=== PATIENT | male | born 1955 | race Caucasian/White ===

== ENCOUNTER 2023-05-21 06:57 | Day surgery (SDC) | payer MEDICARE, OTHER, SELFPAY | END 2023-05-21 09:43 | disposition home or self-care (01) | LOC: CATH 06:57 | PROVIDERS: ATTENDING PHYSICIAN Internal Medicine; FAMILY PHYSICIAN Family Medicine; OTHER PHYSICIAN Internal Medicine Cardiovascular Disease | DX: I48.0 Paroxysmal atrial fibrillation (principal); I08.0 Rheumatic disorders of both mitral and aortic valves; I42.1 Obstructive hypertrophic cardiomyopathy; I10 Essential (primary) hypertension; E78.00 Pure hypercholesterolemia, unspecified; G47.33 Obstructive sleep apnea (adult) (pediatric); Z79.01 Long term (current) use of anticoagulants | CPT/HCPCS: 92960; 93005 ==

== ENCOUNTER → 2023-05-30 07:46 | Outpatient (REF) | payer MEDICARE, OTHER, SELFPAY | LOC: RAD 07:46 | PROVIDERS: ATTENDING PHYSICIAN Family Medicine | DX: G45.0 Vertebro-basilar artery syndrome (principal) | CPT/HCPCS: 93880 ==

== ENCOUNTER → 2023-08-01 09:35 | Day surgery (SDC) | payer MEDICARE, OTHER, SELFPAY ==
[2023-08-01 10:47] VITALS: BMI 28.1
--- NOTE | 2023-08-01 17:24 | ITS.CL.CARDI ---
Contract Admin - Cardioversion
Cardioversion
Procedure Report:
Date of Procedure: 08/01/23
Procedure: Cardioversion
Indication: Symptomatic atrial fibrillation
Performing Physician: Elvira Zuniga DO [facility]
Technique: The patient was brought to the holding area. Signed informed consent was obtained. A time out was called and performed. The patient was anesthetized by the anesthesia service. Anticoagulation status was reviewed and appropriate. R2 pads
were placed anteriorly and posteriorly. A 200 J synchronized biphasic shock restored normal sinus rhythm without significant bradycardia. There were no complications.
Conclusion: Uncomplicated cardioversion from atrial fibrillation to sinus rhythm.
Recommendation: Routine post cardioversion care. 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
== END ==
LOC: CATH 09:35
PROVIDERS: ATTENDING PHYSICIAN Internal Medicine Cardiovascular Disease; FAMILY PHYSICIAN Family Medicine; OTHER PHYSICIAN Internal Medicine Cardiovascular Disease
DX: I48.91 Unspecified atrial fibrillation (principal); I42.1 Obstructive hypertrophic cardiomyopathy; I49.3 Ventricular premature depolarization; I10 Essential (primary) hypertension; G47.33 Obstructive sleep apnea (adult) (pediatric); E78.5 Hyperlipidemia, unspecified; Z85.820 Personal history of malignant melanoma of skin; Z79.01 Long term (current) use of anticoagulants
CPT/HCPCS: 92960; 93005

== ENCOUNTER 2023-08-06 16:49 | Emergency (ER) | payer MEDICARE, OTHER, SELFPAY ==
[2023-08-06] VITALS (16 sets, daily range): BP systolic 128–156; BP diastolic 78–104; BMI 28.0
[2023-08-06 17:18] LABS: % Eosinophils 0.4 % (0-6); % Immature Granulocytes 0.5 % (0-0.5); % Lymphocytes 17.8 % (20.5-51.1); % Neutrophils 73.3 % (42.2-75.2); Absolute Immature Granulocytes 0.1 10^3/uL (0-0.05); Absolute Lymphocytes 1.8 10^3/uL (1.2-3.4); Absolute Monocytes 0.8 10^3/uL (0.1-0.6); Absolute Neutrophils 7.4 10^3/uL (1.4-6.5); Hematocrit 46.4 % (39.0-52.0); Hemoglobin 16.9 g/dL (13.0-18.0); Mean Corp Hgb Conc. 36.4 g/dL (33.0-37.0); Mean Corpuscular Hgb 30.8 pg (27.0-31.0); Mean Corpuscular Volume 84.5 fL (80.0-94.0); Nucleated Red Blood Cells % 0 % (-); Platelet Count 225 10^3/uL (130-400); Red Blood Cell Count 5.49 10^6/uL (4.70-6.10); Red Cell Dist. Width 13.3 % (11.5-14.5); White Blood Cell Count 10.1 10^3/uL (4.8-10.8)
[2023-08-06 17:28] LABS: INR 1.91; PT 22.1 Sec (11.4-14.6)
[2023-08-06 17:36] LABS: ALT (SGPT) 41 U/L (0-50); AST (SGOT) 36 U/L (17-59); Alkaline Phosphatase 64 U/L (38-126); Blood Urea Nitrogen 24 mg/dl (9-20); Calcium 9.6 mg/dl (8.4-10.2); Carbon Dioxide 27 mmol/L (22-30); Chloride 107 mmol/L (98-107); Estimated Creatinine Clearance 57 ml/min; Glucose 88 mg/dl (70-99); Potassium 4.1 mmol/L (3.5-5.1); Sodium 139 mmol/L (135-145); Total Bilirubin 0.8 mg/dl (0.2-1.3); Total Protein 7.3 g/dl (6.3-8.2); eGFR > 60.00
[2023-08-06 17:42] LABS: Troponin I < 0.012 ng/ml
--- NOTE | 2023-08-06 19:14 | ED.GENMED ---
History of Present Illness
General
Chief Complaint: Cardiac Symptoms
Time Seen by Provider: 08/06/23 18:29
Travel History
Have you had any contact with someone who has COVID-19?: No
Do you have any symptoms of coronavirus? Fever > 100 degrees, chills, cough, shortness of breath, sore throat, loss of taste or smell, muscle aches, or headache?: No
History of Present Illness
History of Present Illness:
67-year-old male with history of paroxysmal atrial fibrillation presents to the emergency department due to heart palpitations, states he is in A-fib based on his labs. He has a long history of A-fib, previously maintained on amiodarone with no
bouts of A-fib for several years, over the past 3 to 4 months has chronic A-fib on several occasions and required electrical cardioversion. He most recently was cardioverted 5 days ago by the cardiology service. He states he called his
resources representative today requesting to be cardioverted advised emergency department. His last p.o. intake was approximately 7 to 8 hours ago. Denies any fevers or chills. Denies any illicit substance use. He is currently on 20 mg of amiodarone
nightly, plans to follow-up with [facility] within the next week to discuss repeat ablation states has had some in the past) or alternative antiarrhythmic
Past History
Past History
ED Past Medical History: Arrthythmia (afib) and HTN
ED Past Surgical History: Cardiac (Ablation, cardioversion), Orthopedic and Other
Social History
Tobacco: Non-smoker
Alcohol: Occasional
Drug: None
Personal:
Living: with family
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
Family History
Family History: Other (Noncontributory)
Review of Systems
Review of Systems
Allergies reviewed?: Yes
All Other Systems: ROS reviewed and negative except as documented in HPI and ROS
Phy Exam
Physical Exam
Physical Exam:
GEN: Well appearing, NAD, WDWN
HEENT: Oral mucosa moist, no scleral icterus
Cardiac: Irregular but controlled rate, no murmur
Lung: No respiratory distress, no tachypnea
MSK: No gross deformity or injuries
Skin: Good color, no pallor or jaundice, no rashes
Neuro: AO x3, moves all extremities freely
Psych: Calm, cooperative
Course
Orders/Labs/Results
Orders:
Orders
08/06/23 17:00
Electrocardiogram (*1) Urgent
Reason for Study: Chest Pain
EKG- Treatment ONCE
08/06/23 17:13
Complete Blood Count/With Diff Urgent
Comprehensive Metabolic Panel Urgent
Prothrombin Time Urgent
Troponin I Urgent
08/06/23 19:41
Propofol [Diprivan] 20 ml .ROUTE .STK-MED
08/06/23 19:46
0.9% Sodium Chloride 1000 ml [Nss] 1,000 ml IV BOLUS
08/06/23 19:57
ECG [Electrocardiogram (*1)] Urgent
Reason for Study: Palpitations
EKG- Treatment ONCE
Abnormal Lab Results
08/06/23
17:13
Abs Immat Gran (auto) 0.1 H 10^3/uL
(0-0.05)
Absolute Neuts (auto) 7.4 H 10^3/uL
(1.4-6.5)
Absolute Monos (auto) 0.8 H 10^3/uL
(0.1-0.6)
Lymphocytes % 17.8 L %
(20.5-51.1)
PT 22.1 H Sec
(11.4-14.6)
BUN 24 H mg/dl
(9-20)
08/06/23 17:13
08/06/23 17:13
Vital Signs
Initial and Last Documented VS:
Initial Vital Signs
Temp Pulse Resp BP Pulse Ox
98.2 F 78 16 148/94 98
08/06/23 16:57 08/06/23 16:57 08/06/23 16:57 08/06/23 16:57 08/06/23 16:57
Last Documented Vital Signs
Temp Pulse Resp BP Pulse Ox
98 F 49 17 148/83 95
08/06/23 20:31 08/06/23 20:31 08/06/23 20:31 08/06/23 20:31 08/06/23 20:31
Procedures
Cardioversion
Indication:: Afib
Performed by:: Alden Petty PA-C; Ritesh Brasher DO
Synchronized?: Yes
Energy Used: 200 joules
Number of attempts: 1
Successful?: Yes
Complications: None
ASA Risk Score: Class II
Any reaction or bad outcome to prior sedation/anesthesia?: No history of a reaction
Sedation level to be attained: moderate
Chart and allergies reviewed: Yes
Patient reassessed prior to sedation: Yes
Time out completed at (validating right patient & procedure): 19:49
History of difficult intubation: No
Airway free of obstruction: Yes
Patient has a gag reflex: Yes
Patient is able to open mouth: Yes
Patient has no dentures: Yes
Patient has no loose teeth: Yes
Medication administered by Provider during Moderate Sedation: IV Propofol (mg)
Total dose administered: 80
Time drug administered: 19:51
Start Time: 19:51
Stop Time: 20:01
MDM/Problems Addressed
MDM/Problems Addressed:
Patient is anticoagulated and due to his symptoms was offered to have cardiac in which he is here. Cardioverted successfully without complications. Discussed symptoms resources representative
Comment
Comment:
Initial EKG independently interpreted by me shows a rate controlled atrial flutter with variable AV block, rate of 73, QTc of 449
Post cardioversion EKG independently interpreted by me shows sinus bradycardia with no ST changes
*Critical Care Note
Total Time (30-74mins, 75-104mins- exclusive of procedures): Not Applicable
ED Attending Note
-
Portions of this chart may have been created with voice recognition software.� Occasional wrong word or��sound alike� substitutions may have occurred due to the inherent limitations of voice recognition software.
Discharge Plan
Departure
Patient Disposition: Home (Routine Discharge)
Date of Disposition: 08/06/23
Time of Disposition: 20:34
Patient with high blood pressure during this ER visit?: No
Discharge Problem:
Atrial flutter, paroxysmal
Instructions: Cardioversion (DC), Moderate Sedation in Adults (DC)
Prescriptions:
No Action
amiodarone 200 mg Tablet
200 mg PO HS
amlodipine 10 mg Tablet
10 mg PO HS
candesartan 32 mg Tablet
32 mg PO HS
Xarelto 20 mg Tablet
20 mg PO DAILY
levothyroxine 100 mcg Tablet
100 mcg PO DAILY
eplerenone 50 mg Tablet
200 mg PO DAILY
timolol maleate 0.5 % Drops
1 drp LEFT EYE DAILY
Referrals:
Pérez Estrada MD [Family Provider] -
Interventions
Interventions:
*Risk Screen - Suicide Last Done: 08/06/23 16:57
*General Assessment Last Done: 08/06/23 18:41
*Neglect/Abuse Screening Last Done: 08/06/23 16:57
ED- Fall Risk Assessment Last Done: 08/06/23 18:42
*ED COVID-19 Vaccine History Last Done: 08/06/23 16:57
*Nursing Disposition Last Done: 08/06/23 20:41
ED- Pulmonary Assessment Last Done: 08/06/23 18:42
ED- Cardiac Assessment Last Done: 08/06/23 18:42
Discharge Date and Time
Discharge Date/Time: 08/06/23 20:42
Print Language: [id number]
[2023-08-06] MEDS: NSS 1000 IV (19:46)
== END 2023-08-06 20:42 | disposition home or self-care (01) ==
LOC: EMR 16:49
PROVIDERS: Emergency Medicine; EMERGENCY PHYSICIAN Emergency Medicine; FAMILY PHYSICIAN Family Medicine
DX: I48.92 Unspecified atrial flutter (principal); I48.0 Paroxysmal atrial fibrillation
CPT/HCPCS: 99285; 92960; 96360; 99152; 80053; 84484; 85025; 85610; 93005

== ENCOUNTER 2023-08-27 07:00 | Day surgery (SDC) | payer MEDICARE, OTHER, SELFPAY | END 2023-08-27 08:45 | disposition home or self-care (01) | LOC: CATH 07:00 | PROVIDERS: ATTENDING PHYSICIAN Internal Medicine; FAMILY PHYSICIAN Family Medicine; OTHER PHYSICIAN Internal Medicine Cardiovascular Disease | DX: I48.0 Paroxysmal atrial fibrillation (principal); I10 Essential (primary) hypertension; I42.1 Obstructive hypertrophic cardiomyopathy; E78.00 Pure hypercholesterolemia, unspecified; Z85.828 Personal history of other malignant neoplasm of skin; Z79.01 Long term (current) use of anticoagulants | CPT/HCPCS: 92960; 93005 ==

== ENCOUNTER 2023-09-23 20:05 | Emergency (ER) | payer MEDICARE, OTHER, SELFPAY ==
[2023-09-23 20:10] VITALS: BP 140/98
[2023-09-23 20:30] LABS: % Basophils 0.1 % (0-2); % Eosinophils 0.2 % (0-6); % Immature Granulocytes 0.6 % (0-0.5); % Lymphocytes 12.6 % (20.5-51.1); % Monocytes 13.1 % (1.7-9.3); % Neutrophils 73.4 % (42.2-75.2); Absolute Immature Granulocytes 0.1 10^3/uL (0-0.05); Absolute Lymphocytes 1.4 10^3/uL (1.2-3.4); Absolute Monocytes 1.5 10^3/uL (0.1-0.6); Absolute Neutrophils 8.2 10^3/uL (1.4-6.5); Hematocrit 38.7 % (39.0-52.0); Hemoglobin 14.3 g/dL (13.0-18.0); Mean Corpuscular Hgb 30.6 pg (27.0-31.0); Mean Corpuscular Volume 82.7 fL (80.0-94.0); Nucleated Red Blood Cells % 0 % (-); Platelet Count 253 10^3/uL (130-400); Red Blood Cell Count 4.68 10^6/uL (4.70-6.10); Red Cell Dist. Width 12.9 % (11.5-14.5); White Blood Cell Count 11.1 10^3/uL (4.8-10.8)
[2023-09-23 20:32] LABS: Urine Albumin Trace (Neg - Trace); Urine Bilirubin Negative (Negative); Urine Character Clear (Clear); Urine Color Yellow; Urine Glucose Negative (Negative); Urine Ketone Negative (Negative); Urine Leukocyte Negative (Negative); Urine Nitrite Negative (Negative); Urine Occult Blood Negative (Negative); Urine Specific Gravity 1.015 (<1.030); Urine Urobilinogen Negative (Neg - 1+)
[2023-09-23 20:40] LABS: Lactic Acid 1.4 mmol/L (0.7-2.0)
[2023-09-23 20:45] LABS: COVID-19 Antigen Negative (Negative)
[2023-09-23 20:46] LABS: ALT (SGPT) 18 U/L (0-50); AST (SGOT) 22 U/L (17-59); Albumin 4.5 g/dl (3.5-5.0); Alkaline Phosphatase 67 U/L (38-126); Blood Urea Nitrogen 27 mg/dl (9-20); Calcium 9.4 mg/dl (8.4-10.2); Carbon Dioxide 20 mmol/L (22-30); Chloride 105 mmol/L (98-107); Glucose 155 mg/dl (70-99); Potassium 3.7 mmol/L (3.5-5.1); Sodium 138 mmol/L (135-145); Total Bilirubin 0.5 mg/dl (0.2-1.3); Total Protein 6.8 g/dl (6.3-8.2); eGFR 59.84
[2023-09-23 23:39] VITALS: BP 140/100
--- NOTE | 2023-09-23 23:52 | ED.GENMED ---
History of Present Illness
General
Chief Complaint: Fever
Source: patient
Exam Limitations: none
Time Seen by Provider: 09/23/23 23:26
Travel History
Have you had any contact with someone who has COVID-19?: No
Do you have any symptoms of coronavirus? Fever > 100 degrees, chills, cough, shortness of breath, sore throat, loss of taste or smell, muscle aches, or headache?: No
History of Present Illness
History of Present Illness:
This is a 68 year old male that comes in with c/o fever. States that he had a Cardiac ablation on Friday. States that today he started with a fever of 102.5 around 6pm tonight. States that since the ablation he has had a low grade fever of
99-100. States that he called [facility] and he was told to come to the ER. State that he has also had increased swelling of the right ankle. States that t his started on Friday and got worse on Friday. States that he had chills with the fever. Denies any
chest pain, SOB, cough, abd pain, nausea, vomiting, diarrhea, headache, dizziness, urinary burning.
Past History
Past History
ED Past Medical History: Arrthythmia (afib), Cancer (Skin CA, Melanoma), GERD, HTN and Other (Diverticulosis, )
ED Past Surgical History: Cardiac (Ablation X 3, cardioversion in the double digits), Orthopedic (Left hip Lipoma ) and Other (Cataracts, Hernia repair)
Social History
Tobacco: Non-smoker
Alcohol: None
Drug: None
Personal:
Living: with family
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
Family History
Family History: Other (Noncontributory)
Review of Systems
Review of Systems
All Other Systems: ROS reviewed and negative except as documented in HPI and ROS
Constitutional: Reports fever and chills
EENT: Reports no symptoms
Respiratory: Reports no symptoms; Denies cough or trouble breathing
Cardiac: Reports no symptoms; Denies chest pain
ABD/GI: Denies abdominal pain, nausea, vomiting or diarrhea
: Reports no symptoms; Denies dysuria, frequency or urgency
Musculoskeletal: Reports edema (Right ankle and lower leg)
Skin: Reports no symptoms
Neurological: Reports no symptoms; Denies dizzy or headache
Psychiatric: Reports no symptoms
Phy Exam
General Physical Exam
General Presentation: well appearing and no apparent distress
General age: appears stated age
General Skin: warm and dry
General Habitus: normal
General Mental: alert
General Hydration: appears well hydrated
ENT Exam
ENT Exam: TM's normal, pharynx normal and neck supple
Eye Exam
Eye Exam: EOMI
Cardiovascular Exam
Cardiovascular Exam: normal peripheral pulses and irregularly irregular
Pulmonary Exam
Pulmonary Exam: lungs clear, no respiratory distress, no rales, chest non tender, no crackles, no rhonchi, no wheezing and no cough
Gastrointestinal Exam
Gastrointestinal Exam: normal bowel sounds, non tender, soft, no organomegaly, no pulsatile mass and non distended
Musculoskeletal Exam
Musculoskeletal Exam: full ROM and edema (Right lower ankle and leg +1 pitting edema. )
Skin Exam
Skin Exam: normal color, warm/dry, no rash, no petechia and other (Bilateral groin with contusion noted. Negative for any redness. )
Psychiatric Exam
Psychiatric Exam: normal mood/affect
Course
Orders/Labs/Results
Orders:
Orders
09/23/23 20:13
ECG [Electrocardiogram (*1)] Urgent
Reason for Study: Atrial Fibrillation
EKG- Treatment ONCE
09/23/23 20:22
Complete Blood Count/With Diff Urgent
Comprehensive Metabolic Panel Urgent
Lactic Acid Urgent
Urinalysis Reflex To Culture Urgent
Date Specimen was Collected: 09/23/23
Time Specimen was Collected: 20:13
09/23/23 20:25
COVID-19 Antigen Urgent
Source: Nasal Swab
09/23/23 23:58
0.9% Sodium Chloride 500 ml [Nss] 500 ml IV BOLUS
09/24/23 00:00
CR Ankle - Right Min 3 Views * Urgent
Reason For Exam: Swelling pain
CR Chest - 2 Views Urgent
Reason For Exam: fEVER
US Periph Venous LOWER Ext RT Urgent
Comment: recent cardiac ablation
Reason For Exam: Swelling right leg
Abnormal Lab Results
09/23/23
20:22
WBC 11.1 H 10^3/uL
(4.8-10.8)
RBC 4.68 L 10^6/uL
(4.70-6.10)
Hct 38.7 L %
(39.0-52.0)
Abs Immat Gran (auto) 0.1 H 10^3/uL
(0-0.05)
Absolute Neuts (auto) 8.2 H 10^3/uL
(1.4-6.5)
Absolute Monos (auto) 1.5 H 10^3/uL
(0.1-0.6)
Immature Gran % 0.6 H %
(0-0.5)
Lymphocytes % 12.6 L %
(20.5-51.1)
Monocytes % 13.1 H %
(1.7-9.3)
Carbon Dioxide 20 L mmol/L
(22-30)
BUN 27 H mg/dl
(9-20)
Glucose 155 H mg/dl
(70-99)
09/23/23 20:22
09/23/23 20:22
WBC very slightly elevated. Carbon dioxide low. Dehydration. Glucose nonfasting. Lactic acid normal at 1.4, Urine negative for infection. COVID negative.
Vital Signs
Initial and Last Documented VS:
Initial Vital Signs
Temp Pulse Resp BP Pulse Ox
99.7 F 77 19 140/98 96
09/23/23 20:10 09/23/23 20:10 09/23/23 20:10 09/23/23 20:10 09/23/23 20:10
Last Documented Vital Signs
Temp Pulse Resp BP Pulse Ox
98.7 F 98 18 140/100 97
09/23/23 23:39 09/23/23 23:39 09/23/23 23:39 09/23/23 23:39 09/23/23 23:39
Amusement Equipment Operator consulted with Physician
Amusement Equipment Operator consulted with physician?: Yes
Name of Physician Consulted: Dr. Bruno
MDM/Problems Addressed
Differential Diagnosis Includes:
Viral syndrome. PNA
MDM/Problems Addressed:
This is a 68 year old male that comes in with c/o fever. State that he has a Cardiac ablation on Friday and since that time he was running a low grade fever. Tonight his fever went up to 102.5. State that he had chills. Patient called [facility] and
was told to come to the ER.
Will check labs. Blood culture, Urine and chest X-ray.
Back into see patient. Explained that his US is negative. X-ray is negative for fracture. Reviewed labs. Explained to patient that after taking with Dr. Bruno it was decided that the patient should stay in the hospital due to his fever at home.
Patient temp at this time is 99.8. Patient states that he also has an appointment with [facility] tomorrow for his ankle. States that he would rather go home and he will watch his fever closely. Will discharge home
Chronic conditions affecting care:
NA
Acute Exacerbation and/or Progression of Chronic Illness:
NA
*Pulse Oximetry
Patient hypoxic: no
*EKG
Interpreted by ED Provider?: Yes
Heart Rate: 92
Rate: normal
Rhythm: a-fib
[place]: normal axis
QRS Pattern: normal QRS
Ischemia: non-specific ST changes
*Sprinkler Worker Interpretation
Rate: tachycardiac
Interpretation: abnormal
Heart Rate: 104
Rhythm: a-fib
*Critical Care Note
Total Time (30-74mins, 75-104mins- exclusive of procedures): Not Applicable
ED Attending Note
-
Portions of this chart may have been created with voice recognition software.� Occasional wrong word or��sound alike� substitutions may have occurred due to the inherent limitations of voice recognition software.
Discharge Plan
Departure
Patient Disposition: Home (Routine Discharge)
Date of Disposition: 09/24/23
Time of Disposition: 01:18
Patient with high blood pressure during this ER visit?: Yes
Condition: Good
Covid-19: Negative COVID-19
Discharge Problem:
Fever, Acute right ankle pain
Instructions: Fever, Adult (DC), Swollen Joints (DC), BLOOD PRESSURE
Prescriptions:
No Action
amiodarone 200 mg Tablet
200 mg PO HS
amlodipine 10 mg Tablet
10 mg PO HS
candesartan 32 mg Tablet
32 mg PO HS
Xarelto 20 mg Tablet
20 mg PO DAILY
levothyroxine 100 mcg Tablet
100 mcg PO DAILY
eplerenone 50 mg Tablet
200 mg PO DAILY
timolol maleate 0.5 % Drops
1 drp LEFT EYE DAILY
Referrals:
Pérez Estrada MD [Family Provider] - Call in 1-3 days for appt
Activity Restrictions/Additional Instructions:
As discussed, your WBC are very slightly elevated. You are also dehydrated. Your urine is negative for infection, chest x-ray is negative for any PNA and you are negative for COVID. Your Ultrasound is negative for DVT. Your Ankle X-ray is negative
for any fractures. Please follow up with [facility] tomorrow as scheduled. Please use Tylenol 1000mg every 6 hours as needed for any fever. You have been offered admission but have chosen to go home. Please follow up with your Detail Manager for further
evaluation. IF YOU HAVE FEVER THAT IS ABOVE 100.5, SHAKING CHILLS, OR YOU HAVE ANY OTHER CONCERNS PLEASE RETURN TO THE EMERGENCY ROOM.
Interventions
Interventions:
*Risk Screen - Suicide Last Done: 09/23/23 20:10
*General Assessment Last Done: 09/23/23 20:10
*Neglect/Abuse Screening Last Done: 09/23/23 20:10
*ED COVID-19 Vaccine History Last Done: 09/23/23 20:10
ED- Neurological Assessment Last Done: 09/23/23 23:39
ED-Skin Assessment Last Done: 09/23/23 23:40
Discharge Date and Time
Print Language: VIETNAMESE
[2023-09-24 01:49] LABS: Uric Acid 7.1 mg/dl (3.5-8.5)
== END 2023-09-24 02:08 | disposition home or self-care (01) ==
LOC: EMR 20:05
PROVIDERS: Emergency Medicine; EMERGENCY PHYSICIAN Student in an Organized Health Care Education/Training Program; FAMILY PHYSICIAN Family Medicine
DX: M25.571 Pain in right ankle and joints of right foot (principal); R50.9 Fever, unspecified; M25.471 Effusion, right ankle; M79.604 Pain in right leg; E86.0 Dehydration; Z11.52 Encounter for screening for COVID-19; I48.91 Unspecified atrial fibrillation; I10 Essential (primary) hypertension; K21.9 Gastro-esophageal reflux disease without esophagitis; K57.90 Diverticulosis of intestine, part unspecified, without perforation or abscess without bleeding; Z85.820 Personal history of malignant melanoma of skin; Z98.890 Other specified postprocedural states
CPT/HCPCS: 71046; 73610; 80053; 81003; 83605; 84550; 85025; 87040; 87811; 93005; 93971; 99284

== ENCOUNTER 2024-02-19 07:00 | Day surgery (SDC) | payer MEDICARE, OTHER, SELFPAY ==
--- NOTE | 2024-02-19 09:44 | ITS.CL.CARDI ---
Consulting Hr Professional - Cardioversion
Cardioversion
Procedure Report:
Date of Procedure: February 19 2024
Procedure: Cardioversion
Indication: Symptomatic atrial fibrillation
Performing Physician: Rosas Blake DO [facility]
Technique: The patient was brought to the holding area. Signed informed consent was obtained. A time out was called and performed. The patient was anesthetized by the anesthesia service. Anticoagulation status was reviewed and appropriate. R2 pads
were placed anteriorly and posteriorly. A 200 J synchronized biphasic shock restored normal sinus rhythm without significant bradycardia. There were no complications.
Conclusion: Uncomplicated cardioversion from atrial fibrillation to sinus rhythm.
Recommendation: Routine post cardioversion care. Continue retirement anticoagulation.
== END 2024-02-19 09:00 | disposition home or self-care (01) ==
LOC: CATH 07:00
PROVIDERS: ATTENDING PHYSICIAN Nuclear Medicine Nuclear Cardiology; FAMILY PHYSICIAN Family Medicine; OTHER PHYSICIAN Internal Medicine Cardiovascular Disease
DX: I48.0 Paroxysmal atrial fibrillation (principal); I42.1 Obstructive hypertrophic cardiomyopathy; I10 Essential (primary) hypertension; E78.5 Hyperlipidemia, unspecified; G47.33 Obstructive sleep apnea (adult) (pediatric); Z85.828 Personal history of other malignant neoplasm of skin; Z79.01 Long term (current) use of anticoagulants
CPT/HCPCS: 92960; 93005

== ENCOUNTER 2024-03-10 06:48 | Day surgery (SDC) | payer MEDICARE, OTHER, SELFPAY | END 2024-03-10 07:05 | disposition home or self-care (01) | LOC: CATH 06:48 | PROVIDERS: ATTENDING PHYSICIAN Internal Medicine; FAMILY PHYSICIAN Family Medicine; OTHER PHYSICIAN Internal Medicine Cardiovascular Disease | DX: I48.0 Paroxysmal atrial fibrillation (principal); Z53.09 Procedure and treatment not carried out because of other contraindication; I42.1 Obstructive hypertrophic cardiomyopathy; I10 Essential (primary) hypertension; E78.00 Pure hypercholesterolemia, unspecified; Z85.820 Personal history of malignant melanoma of skin; Z79.01 Long term (current) use of anticoagulants | CPT/HCPCS: 93005 ==

== ENCOUNTER 2024-03-15 09:11 | Day surgery (SDC) | payer MEDICARE, OTHER, SELFPAY ==
[2024-03-15 10:12] VITALS: BMI 28.0
--- NOTE | 2024-03-15 10:24 | ITS.CL.CARDI ---
Crib Clerk - Cardioversion
Cardioversion
Procedure Report:
Date of Procedure: 03/15/24.
Procedure: Cardioversion.
Indication: Symptomatic atrial fibrillation.
Performing Physician: Dottie Jensen MD
Technique: The patient was brought to the holding area. Signed informed consent was obtained. A time out was called and performed. The patient was sedated by a member of the anesthesia service. Anticoagulation status was reviewed and was
appropriate. R-2 pads were placed anteriorly and posteriorly. A 200 J synchronized biphasic shock restored normal sinus rhythm without significant bradycardia. There were no complications.
Conclusion: Uncomplicated cardioversion from atrial fibrillation to sinus rhythm.
Recommendation: Routine post cardioversion care. Continue usp anticoagulation.
cc: Edgar Allan
== END 2024-03-15 11:00 | disposition home or self-care (01) ==
LOC: CATH 09:11
PROVIDERS: ATTENDING PHYSICIAN Internal Medicine Cardiovascular Disease; FAMILY PHYSICIAN Family Medicine; OTHER PHYSICIAN Internal Medicine Cardiovascular Disease
DX: I48.0 Paroxysmal atrial fibrillation (principal); I42.1 Obstructive hypertrophic cardiomyopathy; I44.5 Left posterior fascicular block; I10 Essential (primary) hypertension; E78.00 Pure hypercholesterolemia, unspecified; Z85.820 Personal history of malignant melanoma of skin; Z79.01 Long term (current) use of anticoagulants
CPT/HCPCS: 92960; 93005

== ENCOUNTER → 2024-03-24 07:15 | Outpatient (REF) | payer MEDICARE, OTHER, SELFPAY | LOC: HWRCS 07:15 | PROVIDERS: ATTENDING PHYSICIAN Internal Medicine Cardiovascular Disease; FAMILY PHYSICIAN Family Medicine | DX: I10 Essential (primary) hypertension (principal) | CPT/HCPCS: 93306 ==

== ENCOUNTER 2024-04-07 08:13 | Inpatient (IN) | payer MEDICARE, OTHER, SELFPAY ==
[2024-04-07 08:43] VITALS: BP 135/85
--- NOTE | 2024-04-07 08:49 | W.PN.CARDCBS ---
Addendum entered and electronically signed by Omar Gomez MD 04/07/24 10:09:
I saw and examined the patient.
The CANVAS SHRINKER or PA's note was reviewed and I agree with the note.
Comment: General: Well developed, well nourished in NAD.
Allan has history of A-fib status post multiple ablations on chronic Xarelto, hypertrophic cardiomyopathy, sick sinus syndrome, hypothyroidism. He presents for elective Tikosyn loading for refractory A-fib. He denies chest pain, short of breath, or
palpitations. Will follow QT interval with starting Tikosyn. Discussed with patient and at bedside
Original Note:
Today's Communication / Plan
-
Await labs and ECG, planning to start Tikosyn 500 mcg q 12 hours pending results
Impression / Plan
-
PCP: Dr. Noreen Raya
Cardiology: Dr. Edgar Allan
Impression:
Direct admission for Tikosyn loading 04/07/24
Paroxysmal Afib
s/p RF PVI 2008
s/p cryo PVI 2015
s/p RF ablation with [id number] atrial flutter over the posterior wall and mitral valve annulus, ablation of the PW, lateral mitral line, anterior mitral line (terminated tach (as well as [place] RFA) at [facility] 08/2023
s/p CV 02/19/24 and 03/15/24
previous amiodarone therapy, stopped due to ineffectiveness prior to ablation 08/2023
Chronic Xarelto OAC
HOCM
LV wall thickness 1.3 to 1.5 cm
SSS
Hypothyroid
Echo 03/24/2024: EF 55 to 60%, mildly dilated RA, moderate MR, mild aortic regurgitation, dilated sinus of Valsalva 4.3 cm, sinotubular junction 4.0 cm, ascending aorta 4.3 cm, aortic arch 3.9 cm LV wall thickness 1.2 cm
Plan:
-Patient came to for elective Tikosyn load for paroxysmal Afib. Patient was seen in the office 03/18/24 and reported symptomatic recurrences of Afib despite most recent ablation at [facility] 08/2023 and subsequent CVs 02/19/24 and 03/15/24. Patient had
previously tolerated amiodarone, but it was stopped due to ineffectiveness prior to last ablation. Patient diagnosed with hypothyroid and has continued to require levothyroxine despite cessation of amiodarone. Given options of AAD patient was
agreeable to an attempt at Tikosyn loading.
-No missed doses of Xarelto 20 mg daily
-ECG ordered and results pending
-CMP, CBC and mag level ordered and results pending.
-Will calculate CrCl once labs returned and will likely be able to start Tikosyn 500 mcg q 12 hours.
-Talked with patient and about tele monitoring and ECGs 2 hours after each dose. Talked about QT prolongation and about other meds that can also cause QT prolongation
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
Subjective
Date of Service: April 07, 2024
Feels well, thinks he is in SR, no palpitations
Objective
Labs:
All labs ordered and results pending
Vital Signs and I&O:
Vital Signs
Pulse Resp BP Pulse Ox
62 16 135/85 98
04/07/24 08:43 04/07/24 08:43 04/07/24 08:43 04/07/24 08:43
Vital Signs
Pulse Resp BP Pulse Ox
62 16 135/85 98
04/07/24 08:43 04/07/24 08:43 04/07/24 08:43 04/07/24 08:43
Physical Exam
Physical Exam
GEN: NAD. AAOx3
HEENT: EOMI, mmm
LUNGS: No audible wheeze
CV: SR on tele
ABD: ND
NEURO: Gross non-focal
SKIN: No rash
[2024-04-07 09:05] LABS: Hemoglobin 15.4 g/dL (13.0-18.0); Mean Corp Hgb Conc. 36.7 g/dL (33.0-37.0); Mean Corpuscular Hgb 30.3 pg (27.0-31.0); Mean Corpuscular Volume 82.5 fL (80.0-94.0); Mean Platelet Volume 9.6 fL (7.4-10.4); Platelet Count 192 10^3/uL (130-400); Red Blood Cell Count 5.09 10^6/uL (4.70-6.10); Red Cell Dist. Width 13.4 % (11.5-14.5); White Blood Cell Count 8.3 10^3/uL (4.8-10.8)
[2024-04-07] MEDS: TIMOPTIC 0.25% OPHTHALMIC SOLUTION OPHTH ×2 (09:11→19:31)
[2024-04-07 09:32] VITALS: BMI 28.6
--- NOTE | 2024-04-07 09:43 | PTCARENOTE ---
Patient admitted to IVU for Tikosyn load. Baseline QTC 457. IV placed and labs collected. SB HR 55. Patient independent walking in room, plan of care reviewed, oriented to call [facility]be, at bedside
[2024-04-07 10:07] VITALS: BMI 28.6
[2024-04-07 11:14] VITALS: BP 124/82
[2024-04-07 11:21] LABS: ALT (SGPT) 24 U/L (0-50); AST (SGOT) 29 U/L (17-59); Albumin 4.8 g/dl (3.5-5.0); Alkaline Phosphatase 47 U/L (38-126); Blood Urea Nitrogen 20 mg/dl (9-20); Calcium 9.2 mg/dl (8.4-10.2); Carbon Dioxide 21 mmol/L (22-30); Chloride 110 mmol/L (98-107); Estimated Creatinine Clearance 73 ml/min; Glucose 97 mg/dl (70-99); Magnesium 2.2 mg/dl (1.6-2.3); Potassium 3.8 mmol/L (3.5-5.1); Sodium 144 mmol/L (135-145); Total Protein 6.9 g/dl (6.3-8.2); eGFR > 60.00
--- NOTE | 2024-04-07 11:41 | W.CARD.TIKOS ---
Initiate Tikosyn
-
I verify that the patient has not taken any verapamil (Isoptin/Calan), ketoconazole (Nizoral), cimetidine (Tagamet), trimethoprim (Trimpex), trimethoprim/sulfamethoxazole (Bactrim), megesterol (Megace), prochlorperazine (Compazine),
hydrochlorothiazide (HCTZ), dolutegravir (Tivicay) or any Class I or Class III anti-arrhythmic within the last three days
AND
I verify that the patient has not taken amiodarone within the last THREE months, or that the patient's amiodarone plasma concentration is <0.3 mcg/mL.
Creatinine 1.0 mg/dL (0.7-1.3) 04/07/24 09:29
Estimated Creat Clear 73 ml/min 04/07/24 09:29
CrCl calculated by me is 90
Does patient have a Ventricular Conduction Abnormality: No
I have assessed the baseline QTc interval (using QT for heart rate less than 60 bpm) and deemed the patient is appropriate for Dofetilide therapy. I understand that Tikosyn is contraindicated if the QTc is >440msec (500msec in patients with
ventricular conduction abnormalities).
Baseline QTc (in msec): 457
QTc interval is greater than 440msec without conduction abnormality OR greater than 500msec with a conduction abnormality, but acceptable to proceed per Cardiology attending.
Reason for Administration with Prolonged QTc: Other Atrial Arrhythmia
Ordering Physician: Edgar Allan
[2024-04-07] MEDS: TIKOSYN 500 MCG PO ×2 (11:51→23:02)
--- NOTE | 2024-04-07 13:55 | CM ---
CM following for DC planning needs.
Attempted to meet w/ patient at bedside to complete initial assessment. Pt. was on the telephone ambulating ad elia around room.
Spouse also present.
Pt. is functionally indep. at baseline w/ ADLs, mobility without the use of any assisted device.
Plan is for DC to home once medically stable without needs.
Will confirm patient's pharmacy has Tikosyn in stock and will also ensure that patient has a x3 d supply of medication to take home prior to DC.
CM to follow.
[2024-04-07 15:18] VITALS: BP 136/82
--- NOTE | 2024-04-07 15:57 | PTCARENOTE ---
Addendum entered by Carlos Kent RN 04/07/24 15:59:
Tikosyn does #1 given at 1200, EKG completed at 1400. EKG reviewed by Angelic DELGADO, plan of care unchanged
Original Note:
Tikosyn does #1 given at 1200, EKG completed at 1400. EKG reviewed by Elizabeth DELGADO, plan of care unchanged
[2024-04-07 18:55] VITALS: BP 136/86
[2024-04-07] MEDS: ATACAND 32 MG PO (19:28)
[2024-04-07] MEDS: NORVASC 10 MG PO (19:28)
--- NOTE | 2024-04-07 19:34 | PTCARENOTE ---
Pt. seen and assessed in room. Pt. AOx3, sitting comfortably in chair. No complaints of pain at this time. Tele reading sinus andrew/NSR in the 50s-60s. RN discusses plan of care with patient, specifically about next tikosyn dose/EKG. Pt. verbalizes
understanding. Call [facility] within reach. Continuing to monitor at this time.
[2024-04-07 23:01] VITALS: BP 133/84
[2024-04-07 23:04] VITALS: BP 133/84
[2024-04-08] VITALS (10 sets, daily range): BP systolic 134–153; BP diastolic 82–102; BMI 28.8
[2024-04-08 04:56] LABS: Hematocrit 40.9 % (39.0-52.0); Hemoglobin 14.5 g/dL (13.0-18.0); Mean Corp Hgb Conc. 35.5 g/dL (33.0-37.0); Mean Corpuscular Hgb 29.7 pg (27.0-31.0); Mean Corpuscular Volume 83.6 fL (80.0-94.0); Mean Platelet Volume 9.4 fL (7.4-10.4); Platelet Count 181 10^3/uL (130-400); Red Blood Cell Count 4.89 10^6/uL (4.70-6.10); Red Cell Dist. Width 13.4 % (11.5-14.5); White Blood Cell Count 7.1 10^3/uL (4.8-10.8)
[2024-04-08] MEDS: SYNTHROID 100 MCG PO (05:02)
[2024-04-08 05:25] LABS: Blood Urea Nitrogen 21 mg/dl (9-20); Calcium 8.8 mg/dl (8.4-10.2); Carbon Dioxide 23 mmol/L (22-30); Chloride 110 mmol/L (98-107); Estimated Creatinine Clearance 66 ml/min; Glucose 107 mg/dl (70-99); Potassium 3.6 mmol/L (3.5-5.1); Sodium 143 mmol/L (135-145); eGFR > 60.00
[2024-04-08] MEDS: INSPRA 200 MG PO (08:23)
[2024-04-08] MEDS: XARELTO 20 MG PO (08:24)
[2024-04-08] MEDS: TIMOPTIC 0.25% OPHTHALMIC SOLUTION 1 DROP OPHTH (08:24)
--- NOTE | 2024-04-08 09:22 | W.PN.CARDCBS ---
Addendum entered and electronically signed by Angelic Curtis PA-C 04/08/24 15:57:
Updated patient that his QTc was stable on ECG after 3rd dose of Tikosyn this AM. Tikosyn dose lowered to 250 mcg this AM due to QT prolongation with 500 mcg q 12 hours x2 yesterday. Preemptively e-scribed the tikosyn 250 mcg q 12 hours Rx and sent
Rx for 3 day supply to pharmacy. Recheck BMP in AM and if potassium stable then recheck in 1-2 weeks as an outpatient. If potassium is borderline low again then would consider KCl 10 meq daily and recheck BMP in 1-2 weeks. Magnesium was normal at
2.2. Lab slip on chart. Follow up on chart, patient says our office called him to cancel appt at some point, but I cannot find a record of this.
Addendum entered and electronically signed by Wenceslao Lion MD 04/08/24 10:41:
I saw and examined the patient.
The Risk Manager's note was reviewed and I agree with the note.
Comment: Briefly, 60-year-old man past medical history of persistent atrial fibrillation with multiple PVI's in the past who presents for Tikosyn loading
Currently maintaining sinus rhythm however QTc interval is prolonging and and now reported as 481 ms although I suspect that this is overestimated
Plan to decrease Tikosyn dose to 250 mg twice daily
Replete electrolytes
Telemetry and continue serial ECGs for monitoring
Tentative plan for discharge tomorrow a.m. if he remains stable
Original Note:
Today's Communication / Plan
-
Decrease Tikosyn to 250 mcg q 12 hours due to QTc up to 472
Low normal potassium at 3.6, will give KCl 40 meq now
Follow HR on tele
Impression / Plan
-
PCP: Dr. Noreen Raya
Cardiology: Dr. Edgar Allan
Impression:
Direct admission for Tikosyn loading 04/07/24
Paroxysmal Afib
s/p RF PVI 2008
s/p cryo PVI 2015
s/p RF ablation with [id number] atrial flutter over the posterior wall and mitral valve annulus, ablation of the PW, lateral mitral line, anterior mitral line (terminated tach (as well as [place] RFA) at [facility] 08/2023
s/p CV 02/19/24 and 03/15/24
previous amiodarone therapy, stopped due to ineffectiveness prior to ablation 08/2023
Chronic Xarelto OAC
HOCM
LV wall thickness 1.3 to 1.5 cm
SSS
Hypothyroid
Echo 03/24/2024: EF 55 to 60%, mildly dilated RA, moderate MR, mild aortic regurgitation, dilated sinus of Valsalva 4.3 cm, sinotubular junction 4.0 cm, ascending aorta 4.3 cm, aortic arch 3.9 cm LV wall thickness 1.2 cm
Plan:
-QTc 457 on admission and then increased to 472 after 2nd dose of Tikosyn 500 mcg given 04/07/24 late PM.
-Will lower dose of Tikosyn to 250 mcg q 12 hours starting with the 3rd dose that is scheduled for , 04/08/24 mid morning.
-If QTc is stable then will continue with Tikosyn 250 mcg and 5th dose would be 04/09/24 AM.
-Cre stable at 1.1 on labs 04/08/24 and CrCl 82 calculated by me.
-No missed doses of Xarelto 20 mg daily
-Potassium is low normal at 3.6, will give KCl 40 meq now. Magnesium was 2.2 on 04/07/24. Recheck BMP in AM, ordered by me.
-Outpatient dose of Toprol XL 25 mg HS on hold since admission for concerns about bradycardia with addition of Tikosyn. Follow HRs on tele.
-Patient given paper reports of his labs this admission and echo from 03/24/24.
HPI: Patient came to for elective Tikosyn load for paroxysmal Afib. Patient was seen in the office 03/18/24 and reported symptomatic recurrences of Afib despite most recent ablation at [facility] 08/2023 and subsequent CVs 02/19/24 and 03/15/24. Patient
had previously tolerated amiodarone, but it was stopped due to ineffectiveness prior to last ablation. Patient diagnosed with hypothyroid and has continued to require levothyroxine despite cessation of amiodarone. Given options of AAD patient was
agreeable to an attempt at Tikosyn loading.
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
Subjective
Date of Service: April 08, 2024
No palpitations, no chest pain
Objective
Labs:
04/08/24 04:31
04/08/24 04:31
Labs
Hgb 14.5 g/dL (13.0-18.0) 04/08/24 04:31
Hct 40.9 % (39.0-52.0) 04/08/24 04:31
Plt Count 181 10^3/uL (130-400) 04/08/24 04:31
Sodium 143 mmol/L (135-145) 04/08/24 04:31
Potassium 3.6 mmol/L (3.5-5.1) 04/08/24 04:31
BUN 21 mg/dl (9-20) H 04/08/24 04:31
Creatinine 1.1 mg/dL (0.7-1.3) 04/08/24 04:31
Glucose 107 mg/dl (70-99) H 04/08/24 04:31
Vital Signs and I&O:
Vital Signs
Temp Pulse Resp BP Pulse Ox
97.6 F 59 20 142/87 100
04/08/24 08:39 04/08/24 09:00 04/08/24 08:39 04/08/24 08:38 04/08/24 08:39
Vital Signs
Temp Pulse Resp BP Pulse Ox
97.6 F 59 20 142/87 100
04/08/24 08:39 04/08/24 09:00 04/08/24 08:39 04/08/24 08:38 04/08/24 08:39
Intake & Output
04/06/24 04/07/24 04/08/24 04/09/24
06:59 06:59 06:59 06:59
Intake Total 100 / 100
Balance 100 / 100
Physical Exam
Physical Exam
GEN: NAD. AAOx3
HEENT: EOMI, mmm
LUNGS: No audible wheeze
CV: SR on tele
ABD: ND
NEURO: Gross non-focal
SKIN: No rash
[2024-04-08] MEDS: TIKOSYN 250 MCG PO ×2 (10:18→20:31)
--- NOTE | 2024-04-08 12:25 | PTCARENOTE ---
Patient walking in the [place]jía. Tikosyn dose #3 given at 10 am, QTC 483
--- NOTE | 2024-04-08 13:32 | CM ---
CM following for DC planning needs.
Met w/ patient at bedside.
Pt. feeling well. We discussed DC plan for home, no needs anticipated.
Will check stock of Tikosyn at local pharmacy, [facility] [place] prior to DC.
Will also need x3 d RX for 3 days worth of medication.
CM will cont. to follow.
[2024-04-08] MEDS: NORVASC 10 MG PO (19:57)
[2024-04-08] MEDS: ATACAND 32 MG PO (19:58)
--- NOTE | 2024-04-08 20:28 | PTCARENOTE ---
received patient at the change of shift. AAOx3. denies any complaints. SR with a first degree AVB 60s. bp stable. reviewed plan of care with patient and verbalized understanding. questions answered. call beebe within reach.
[2024-04-08] MEDS: TIMOPTIC 0.25% OPHTHALMIC SOLUTION OPHTH (20:30)
[2024-04-09 04:59] VITALS: BP 152/90
[2024-04-09] MEDS: SYNTHROID 100 MCG PO (05:03)
[2024-04-09 05:59] LABS: Blood Urea Nitrogen 24 mg/dl (9-20); Calcium 9.2 mg/dl (8.4-10.2); Carbon Dioxide 27 mmol/L (22-30); Chloride 108 mmol/L (98-107); Estimated Creatinine Clearance 73 ml/min; Glucose 119 mg/dl (70-99); Potassium 4.2 mmol/L (3.5-5.1); Sodium 144 mmol/L (135-145); eGFR > 60.00
[2024-04-09 07:33] VITALS: BP 132/86
--- NOTE | 2024-04-09 07:37 | W.PN.CARDCBS ---
Addendum entered and electronically signed by Malathi Desri PA-C 04/09/24 16:45:
Dictation #[id number]
Addendum entered and electronically signed by Chip Morrison DO 04/09/24 10:54:
I saw and examined the patient.
The Box Toe Cutter's note was reviewed and I agree with the note.
Comment:
Patient seen and examined. No complaints. No acute events overnight. Telemetry sinus rhythm.
A/P as below
EKG sinus rhythm QT/QTc measured 460/452 ms on EKG 04/09/2024 AM following a.m. dose dofetilide 250 mcg BID
Continue to hold beta-ivette
Patient stable for DC with outpatient follow-up as scheduled
Original Note:
Today's Communication / Plan
-
Follow QTc after 5th dose of Tikosyn this AM
If QT stable, ok for discharge
Remains in SR
Follow up arranged
Impression / Plan
-
PCP: Dr. Noreen Raya
Cardiology: Dr. Edgar Allan
Impression:
Direct admission for Tikosyn loading 04/07/24
Paroxysmal Afib
s/p RF PVI 2008
s/p cryo PVI 2015
s/p RF ablation with [id number] atrial flutter over the posterior wall and mitral valve annulus, ablation of the PW, lateral mitral line, anterior mitral line (terminated tach (as well as [place] RFA) at [facility] 08/2023
s/p CV 02/19/24 and 03/15/24
previous amiodarone therapy, stopped due to ineffectiveness prior to ablation 08/2023
Chronic Xarelto OAC
HOCM
LV wall thickness 1.3 to 1.5 cm
SSS
Hypothyroid
Echo 03/24/2024: EF 55 to 60%, mildly dilated RA, moderate MR, mild aortic regurgitation, dilated sinus of Valsalva 4.3 cm, sinotubular junction 4.0 cm, ascending aorta 4.3 cm, aortic arch 3.9 cm LV wall thickness 1.2 cm
Plan:
-Presented for elective Tikosyn load. Continued to have symptomatic paroxysms of afib despite multiple prior ablations.
-Previously on amiodarone, however stopped due to ineffectiveness as well as hypothyroidism.
-Initiated on Tikosyn 500 mcg Q12H, however QT increased after 2nd dose and dose was reduced to 250 mcg Q12H.
-QTc 497ms in PM 04/08, but visually appears stable, closer to 470 ms. For 5th dose this AM. Continue to follow QTc.
-Remains in SR on review of telemetry.
-Continues on uninterrupted anticoagulation with Xarelto 20mg daily.
-K stable at 4.2 s/p repletion 04/08.
-OP Toprol 25mg QHS on hold due to concerns for bradycardia w/ addition of Tikosyn. HR stable.
-If QTc stable after 5th dose this AM, stable for discharge.
-Follow up arranged.
HPI: Patient came to for elective Tikosyn load for paroxysmal Afib. Patient was seen in the office 03/18/24 and reported symptomatic recurrences of Afib despite most recent ablation at [facility] 08/2023 and subsequent CVs 02/19/24 and 03/15/24. Patient
had previously tolerated amiodarone, but it was stopped due to ineffectiveness prior to last ablation. Patient diagnosed with hypothyroid and has continued to require levothyroxine despite cessation of amiodarone. Given options of AAD patient was
agreeable to an attempt at Tikosyn loading.
Progress Note - Crop Grain Or Livestock Farm Manager
Subjective
Date of Service: April 09, 2024
Feeling well. No complaints overnight.
Objective
Labs:
04/08/24 04:31
04/09/24 05:05
Labs
Hgb 14.5 g/dL (13.0-18.0) 04/08/24 04:31
Hct 40.9 % (39.0-52.0) 04/08/24 04:31
Plt Count 181 10^3/uL (130-400) 04/08/24 04:31
Sodium 144 mmol/L (135-145) 04/09/24 05:05
Potassium 4.2 mmol/L (3.5-5.1) 04/09/24 05:05
BUN 24 mg/dl (9-20) H 04/09/24 05:05
Creatinine 1.0 mg/dL (0.7-1.3) 04/09/24 05:05
Glucose 119 mg/dl (70-99) H 04/09/24 05:05
Vital Signs and I&O:
Vital Signs
Temp Pulse Resp BP Pulse Ox
97.7 F 53 16 152/90 98
04/09/24 05:03 04/09/24 05:15 04/09/24 05:03 04/09/24 04:59 04/09/24 05:03
Vital Signs
Temp Pulse Resp BP Pulse Ox
97.7 F 53 16 152/90 98
04/09/24 05:03 04/09/24 05:15 04/09/24 05:03 04/09/24 04:59 04/09/24 05:03
Intake & Output
04/07/24 04/08/24 04/09/24 04/10/24
06:59 06:59 06:59 06:59
Intake Total 100 / 100 450 / 450
Balance 100 / 100 450 / 450
Physical Exam
Physical Exam
GEN: No distress, awake, alert, oriented x3
HEENT: supple, anicteric, mmm
LUNGS: CTA b/l, no wheezes/rales
CV: Reg, S1/S2, 1/6 syst murmur
EXT: No clubbing, cyanosis, or edema
NEURO: Gross non-focal
SKIN: Warm, dry, no rash
[2024-04-09] MEDS: TIMOPTIC 0.25% OPHTHALMIC SOLUTION 1 DROP OPHTH (08:29)
[2024-04-09] MEDS: TIKOSYN 250 MCG PO (08:30)
[2024-04-09] MEDS: INSPRA 200 MG PO (08:30)
[2024-04-09] MEDS: XARELTO 20 MG PO (08:33)
--- NOTE | 2024-04-09 10:48 | W.DS.TRANS ---
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
-
Discharge Instructions:
Discharge Diagnosis/Procedures Paroxysmal atrial fibrillation, Tikosyn (
dofetilide) loading
Diet Low Fat,Low Sodium
Activity As tolerated
Driving Restrictions As prior to admission
Bathing Restrictions None
Instructions:
Stand-Alone Forms:
Changes to Home Medications: Yes
Discharge Medications:
DC Medications w/original date entered in [employer]
amlodipine 10 mg tablet 10 mg PO HS Blood Pressure 05/21/23
candesartan 32 mg tablet 32 mg PO HS Blood Pressure 05/21/23
eplerenone 50 mg tablet 200 mg PO DAILY Blood Pressure 05/21/23
levothyroxine 100 mcg tablet 100 mcg PO DAILY Thyroid 05/21/23
rivaroxaban 20 mg tablet (Xarelto) 20 mg PO DAILY Blood Clot Prevention/Tx 05/21/23
timolol 0.25 % eye drops 1 drp ophthalmic (eye) BID Eye Condition 04/07/24
dofetilide 250 mcg capsule 250 mcg PO Q12H Arrhythmia #180 caps 04/08/24
Home Medication Changes
dofetilide is new
metoprolol stopped
Pending Results: No
[2024-04-09 10:57] VITALS: BP 139/82
--- NOTE | 2024-04-09 11:22 | PTCARENOTE ---
Pt seen by , ECG post 5th tikosyn reviewed by him. Telemetry and IV device removed. Discharge instructions reviewed with pt regarding medications, lab tests and reporting cares and concerns. Excellent understanding verbalized. Pt has 3 day
supply of tikosyn to take home. Pt escorted out and discharged to home.
--- NOTE | 2024-04-09 12:32 | CM ---
CM following for DC planning needs.
Pt. for DC today to home.
RX sent to [facility] for Dofetilide; confirmed that they have this in stock and cost for 90 d supply is $89.16.
Plan is for home, no needs.
== END 2024-04-09 11:30 | disposition home or self-care (01) | DRG 310 ==
LOC: IVU 08:13
PROVIDERS: Physician Assistant Medical; ADMITTING PHYSICIAN Internal Medicine Cardiovascular Disease; FAMILY PHYSICIAN Family Medicine
DX: I48.0 Paroxysmal atrial fibrillation (principal); E03.9 Hypothyroidism, unspecified; I42.1 Obstructive hypertrophic cardiomyopathy; I49.5 Sick sinus syndrome; Z79.01 Long term (current) use of anticoagulants
CPT/HCPCS: 80048; 80053; 83735; 85027; 93005

== ENCOUNTER 2025-01-05 07:59 | Emergency (ER) | payer MEDICARE, OTHER, SELFPAY ==
[2025-01-05 08:00] VITALS: BP 156/88
[2025-01-05 08:22] VITALS: BP 144/85
--- NOTE | 2025-01-05 08:33 | ED.GENMED ---
History of Present Illness
General
Chief Complaint: Chest Pain
Time Seen by Provider: 01/05/25 08:19
History of Present Illness
History of Present Illness:
69-year-old male with history of paroxysmal A-fib on Tikosyn and Xarelto, hypertrophic cardiomyopathy, and hypertension presents for evaluation of chest pain that woke him from sleep at 4 AM today. Pain is intermittent, lasting mere seconds but
recurs every several minutes, centrally located in the substernal region. Does note that he was splitting wood yesterday but states it does not feel muscular. Nonpleuritic and nonradiating. No obvious modifying factors, nonpositional. No recent
fevers or chills. Did not take his Tikosyn or Xarelto this morning
Past History
Past History
ED Past Medical History: Arrthythmia (afib), Cancer (Skin CA, Melanoma), GERD, HTN and Other (Diverticulosis, )
ED Past Surgical History: Cardiac (Ablation X 3, cardioversion in the double digits), Orthopedic (Left hip Lipoma ) and Other (Cataracts, Hernia repair)
Social History
Tobacco: Non-smoker
Alcohol: None
Drug: None
Personal:
Living: with family
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
Family History
Family History: Other (Noncontributory)
Review of Systems
Review of Systems
Allergies reviewed?: Yes
All Other Systems: ROS reviewed and negative except as documented in HPI and ROS
Phy Exam
Physical Exam
Physical Exam:
GEN: Well appearing, NAD, WDWN
HEENT: Oral mucosa moist, no scleral icterus
Cardiac: Bradycardic, regular, no murmur
Lung: No respiratory distress, no tachypnea, lungs clear to auscultation bilaterally
Chest: No reproducible chest wall pain
MSK: No gross deformity or injuries
Skin: Good color, no pallor or jaundice, no rashes
Neuro: AO x3, moves all extremities freely
Psych: Calm, cooperative
Scores
Heart Score for Chest Pain Patients
STEMI patient?: No
History: Slightly or Non-Suspicious
ECG: Nonspecific Repolarization
Age: >/= 65 years
Risk Factors: 1 or 2 Risk Factors
Troponin: </= Normal Limit
Heart Score for Chest Pain Patients: 4
Heart Score Risk: 20.3% MACE over next 6 weeks
Course
Orders/Labs/Results
Orders:
Orders
01/05/25 08:01
EKG [Electrocardiogram (*1)] Urgent
Reason for Study: Chest Pain
EKG- Treatment ONCE
01/05/25 08:32
CR Chest - 2 Views Urgent
Comment:
Reason For Exam: chest pain
01/05/25 08:35
Dofetilide [Tikosyn] 250 mcg PO NOW STA
01/05/25 08:46
Complete Blood Count/With Diff Urgent
Comprehensive Metabolic Panel Urgent
Troponin I Urgent
01/05/25 09:53
EKG- Treatment ONCE
01/05/25 10:45
Electrocardiogram (*1) Urgent
Reason for Study: Chest Pain
01/05/25 11:30
Troponin I Urgent
Abnormal Lab Results
01/05/25
08:46
Absolute Monos (auto) 0.9 H 10^3/uL
(0.1-0.6)
Lymphocytes % 20.4 L %
(20.5-51.1)
Chloride 108 H mmol/L
(98-107)
BUN 23 H mg/dl
(9-20)
Glucose 112 H mg/dl
(70-99)
Albumin 5.5 H g/dl
(3.5-5.0)
01/05/25 08:46
01/05/25 08:46
Vital Signs
Initial and Last Documented VS:
Initial Vital Signs
Temp Pulse Resp BP Pulse Ox
97.9 F 57 16 156/88 99
01/05/25 08:00 01/05/25 08:00 01/05/25 08:00 01/05/25 08:00 01/05/25 08:00
Last Documented Vital Signs
Temp Pulse Resp BP Pulse Ox
97.9 F 53 20 141/84 97
01/05/25 08:00 01/05/25 12:15 01/05/25 12:15 01/05/25 12:00 01/05/25 12:15
MDM/Problems Addressed
MDM/Problems Addressed:
Patient's initial troponin was negative thus delta was obtained which trended down to undetectably low. Patient continued to have episodic anterior chest pain with no EKG changes. Low clinical suspicion that this represents ACS. He has outpatient
cardiology follow-up tomorrow, feel he is stable enough for outpatient follow-up
Comment
Comment:
EKG independently interpreted by me shows a sinus bradycardia with first-degree AV block, lateral ST depressions comparable to prior tracings, normal QT interval
*Pulse Oximetry
SaO2: 99
Oxygen Mode of Delivery: Room air
Patient hypoxic: no
*Critical Care Note
Total Time (30-74mins, 75-104mins- exclusive of procedures): Not Applicable
ED Attending Note
-
Portions of this chart may have been created with voice recognition software.� Occasional wrong word or��sound alike� substitutions may have occurred due to the inherent limitations of voice recognition software.
Discharge Plan
Departure
Patient Disposition: Home (Routine Discharge)
Date of Disposition: 01/05/25
Time of Disposition: 12:31
Patient with high blood pressure during this ER visit?: No
Discharge Problem:
Atypical chest pain
Instructions: Chest Pain That Is Not Caused by the Heart (DC)
Prescriptions:
No Action
amlodipine 10 mg Tablet
10 mg PO HS
candesartan 32 mg Tablet
32 mg PO HS
Xarelto 20 mg Tablet
20 mg PO DAILY
levothyroxine 100 mcg Tablet
100 mcg PO DAILY
eplerenone 50 mg Tablet
200 mg PO DAILY
timolol 0.25 % Drops
1 drp OPHTHALMIC (EYE) BID
dofetilide 250 mcg Capsule
250 mcg PO Q12H Qty: 180 3RF
Referrals:
Byron Monroy DO [Family Provider, Family Practice]
Interventions
Interventions:
*Risk Screen - Suicide Last Done: 01/05/25 08:30
*General Assessment Last Done: 01/05/25 08:30
*Neglect/Abuse Screening Last Done: 01/05/25 08:30
*ED- Fall Risk Assessment Last Done: 01/05/25 12:33
*Nursing Disposition Last Done: 01/05/25 12:33
ED- Cardiac Assessment Last Done: 01/05/25 08:30
Discharge Date and Time
Discharge Date/Time: 01/05/25 12:33
Print Language: DANISH
[2025-01-05] MEDS: TIKOSYN 250 MCG PO (08:59)
[2025-01-05 09:00] VITALS: BP 146/91
[2025-01-05 09:04] LABS: Hematocrit 47.4 % (39.0-52.0); Hemoglobin 16.8 g/dL (13.0-18.0); Mean Corp Hgb Conc. 35.4 g/dL (33.0-37.0); Mean Corpuscular Volume 82.4 fL (80.0-94.0); Nucleated Red Blood Cells % 0 % (-); Platelet Count 203 10^3/uL (130-400); Red Cell Dist. Width 13.9 % (11.5-14.5)
[2025-01-05 09:26] LABS: ALT (SGPT) 30 U/L (0-50); AST (SGOT) 31 U/L (17-59); Albumin 5.5 g/dl (3.5-5.0); Alkaline Phosphatase 53 U/L (38-126); Blood Urea Nitrogen 23 mg/dl (9-20); Calcium 9.7 mg/dl (8.4-10.2); Carbon Dioxide 29 mmol/L (22-30); Chloride 108 mmol/L (98-107); Glucose 112 mg/dl (70-99); Potassium 3.9 mmol/L (3.5-5.1); Sodium 145 mmol/L (135-145); Total Protein 8.0 g/dl (6.3-8.2); eGFR > 60.00
[2025-01-05 09:35] LABS: Troponin I 0.020 ng/ml
[2025-01-05 10:00] VITALS: BP 139/86
[2025-01-05 11:00] VITALS: BP 137/85
[2025-01-05 11:51] VITALS: BMI 26.1
[2025-01-05 12:00] VITALS: BP 141/84
[2025-01-05 12:26] LABS: Troponin I < 0.012 ng/ml
== END 2025-01-05 12:33 | disposition home or self-care (01) ==
LOC: EMR 07:59
PROVIDERS: Physician Assistant; EMERGENCY PHYSICIAN Emergency Medicine; FAMILY PHYSICIAN Family Medicine
DX: R07.89 Other chest pain (principal); R00.1 Bradycardia, unspecified; I44.0 Atrioventricular block, first degree; I48.0 Paroxysmal atrial fibrillation; I42.2 Other hypertrophic cardiomyopathy; I10 Essential (primary) hypertension; K21.9 Gastro-esophageal reflux disease without esophagitis; Z85.820 Personal history of malignant melanoma of skin
CPT/HCPCS: 99284; 71046; 80053; 84484; 85025; 93005

== ENCOUNTER → 2025-01-14 11:13 | Outpatient (REF) | payer MEDICARE, OTHER, SELFPAY | LOC: HWRCS 11:13 | PROVIDERS: ATTENDING PHYSICIAN Nurse Practitioner; FAMILY PHYSICIAN Family Medicine | DX: I48.0 Paroxysmal atrial fibrillation (principal); I42.1 Obstructive hypertrophic cardiomyopathy | CPT/HCPCS: 93306 ==

== ENCOUNTER → 2025-02-03 07:02 | Outpatient (REF) | payer MEDICARE, OTHER, SELFPAY | LOC: HWRCS 07:02 | PROVIDERS: ATTENDING PHYSICIAN Nurse Practitioner; FAMILY PHYSICIAN Family Medicine | DX: I48.0 Paroxysmal atrial fibrillation (principal); I42.1 Obstructive hypertrophic cardiomyopathy; R07.89 Other chest pain | CPT/HCPCS: 78452; 93017; A9500 ==